=== PATIENT | male | born 1990 | race Caucasian/White ===

== ENCOUNTER 2016-05-19 22:00 | Emergency (ER) | payer OTHER ==
[2016-05-19 22:16] VITALS: BP 145/81; PULSE 87; TEMP 99.1; BMI 30.4
[2016-05-19] MEDS ORDERED: ACETAMINOPHEN 325 MG TABLET (FP) PO ONE (23:26)
--- NOTE | 2016-05-19 23:27 | PDOC ---
History of Present Illness - General Chief Complaint: Sore Throat Stated Complaint: SORE THROAT Time Seen by Provider: 05/19/16 23:12 History Source: Patient, Family Exam Limitations: Language Barrier - History of Present Illness Initial Comments: 05/20/16 00:27 26yo Male patient Persian speaking only presents to ED with Family c/o sore throat beginning this morning. Denies fever, cough, CP, Abd pain, n/v/d, diff breathing. Associated decrease po fluid/solid intake. Timing/Duration: reports: this morning Severity: reports: severe Possible Cause: Yes: no prior episodes Modifying Factors: worse with: activity, albuterol inhaler, albuterol nebulizer , antibiotics, coughing, lying down, oxygen, rest, other Associated Symptoms: reports: sore throat Past History - Travel Traveled outside of the country in the last 30 days: No Close contact w/someone who was outside of country & ill: No - Past Medical History Allergies/Adverse Reactions: Allergies Allergy/AdvReac Type Severity Reaction Status Date / Time No Known Allergies Allergy Verified 05/19/16 22:16 Home Medications: Ambulatory Orders Penicillin V Potassium [Pen Vee K -] 500 mg PO TID #21 tablet 05/20/16 Thyroid Disease: No - Surgical History Appendectomy: No - Psycho/Social/Smoking Cessation Hx Anxiety: No Suicidal Ideation: No Smoking History: Never smoked Have you smoked in the past 12 months: No Number of Cigarettes Smoked Daily: 0 Hx Alcohol Use: No Drug/Substance Use Hx: No Substance Use Type: None Hx Substance Use Treatment: No Respiratory Specific PMHX - Complaint Specific PMHX Angina: No Bronchitis: No Pneumonia: No Pulmonary Embolus: No TB (Tuberculosis): No Review of Systems - Review of Systems Able to Perform ROS?: Yes Is the patient limited Albanian proficient: Yes Constitutional: No: Chills, Fever, Malaise HEENTM: Yes: Throat Pain, Difficulty Swallowing. No: Ear Pain, Ear Discharge, Nose Congestion, Throat Swelling, Mouth Pain, Mouth Swelling Respiratory: No: Cough, Orthopnea, Shortness of Breath, Stridor, Wheezing, Productive cough Cardiac (ROS): No: Chest Pain, Lightheadedness, Palpitations, Syncope, Chest Tightness ABD/GI: No: Constipated, Diarrhea, Nausea, Poor Appetite, Poor Fluid Intake, Vomiting : No: Burning, Dysuria, Discharge, Flank Pain, Urgency Musculoskeletal: No: Back Pain Integumentary: No: Bruising, Erythema, Rash, Sweating Neurological: No: Headache, Numbness, Paresthesia, Seizure, Tingling, Tremors, Weakness All Other Systems: Reviewed and Negative *Physical Exam - Vital Signs Last Vital Signs Temp Pulse Resp BP Pulse Ox 99.1 F 87 18 145/81 99 05/19/16 22:14 05/19/16 22:14 05/19/16 22:14 05/19/16 22:14 05/19/16 22:14 - Physical Exam General Appearance: Yes: Nourished, Appropriately Dressed, Mild Distress. No: Apparent Distress, Moderate Distress, Severe Distress HEENT: positive: EOMI, JASSON, Normal ENT Inspection, Normal Voice, Symmetrical, TMs Normal, Pharyngeal Erythema, Tonsillar Erythema. negative: Tonsillar Exudate, Nasal Congestion, Rhinorrhea, TM Bulging, TM Dull, TM Erythema Neck: positive: Trachea midline, Normal Thyroid, Supple, Lymphadenopathy (L). negative: Tender, Rigid, Lymphadenopathy (R) Respiratory/Chest: positive: Lungs Clear, Normal Breath Sounds. negative: Chest Tender, Respiratory Distress, Accessory Muscle Use, Labored Respiration, Rapid RR Cardiovascular: positive: Regular Rhythm, Regular Rate. negative: Edema, JVD, Murmur Extremity: positive: Normal Capillary Refill, Normal Inspection, Normal Range of Motion Integumentary: positive: Normal Color, Dry, Warm. negative: Hives, Petechiae, Rash Neurologic: positive: office technician II-XII NML intact, Fully Oriented, Alert, Normal Mood/ Affect, Normal Response, Motor Strength 5/5 *DC/Admit/Observation/Transfer Diagnosis at time of Disposition: Strep pharyngitis - Discharge Dispostion Disposition: HOME Condition at time of disposition: Stable Admit: No - Prescriptions Prescriptions: Penicillin V Potassium [Pen Vee K -] 500 mg PO TID #21 tablet - Patient Instructions Printed Discharge Instructions: DI for Strep Throat Additional Instructions: Take medications as prescribed. Follow up with your primary care provider as needed. Gargle with warm salt water every 4-6 hours to help with symptoms. Return if any concerns for further evaluation. Print Language: UKRAINIAN
[2016-05-19] MEDS ORDERED: ACETAMINOPHEN 325 MG TABLET (FP) ONE (23:29)
[2016-05-20] MEDS ORDERED: PENICILLIN V POTASSIUM 500 MG TABLET PO ONE (00:31)
[2016-05-20] MEDS ORDERED: DEXAMETHASONE SOD PHOSPHATE 10 MG/1 ML VIAL IM ONE (00:32)
[2016-05-20] MEDS ORDERED: DEXAMETHASONE SOD PHOSPHATE 10 MG/1 ML VIAL ONE (00:35)
== END 2016-05-20 01:33 | disposition home or self-care (01) ==
LOC: JER 22:00
PROC: 3E0233Z Introduction of Anti-inflammatory into Muscle, Percutaneous Approach (ICD-10-PCS; principal; 2016-05-19)
DX: J02.0 Streptococcal pharyngitis (principal); B95.0 Streptococcus, group A, as the cause of diseases classified elsewhere
CPT/HCPCS: 87070; 87430; 87804; 96372; 99281-25

== ENCOUNTER 2020-02-12 21:37 | Emergency (ER) | payer OTHER ==
[2020-02-12 21:43] VITALS: BP 145/94; TEMP 97; BMI 29.2
[2020-02-13 00:03] VITALS: PULSE 92
== END 2020-02-13 00:09 | disposition home or self-care (01) ==
LOC: JER 21:37
DX: S09.90XA Unspecified injury of head, initial encounter (principal); S00.03XA Contusion of scalp, initial encounter
CPT/HCPCS: 70450-TC; 99284-25